=== PATIENT | male | born 1990 | race Caucasian/White ===

== ENCOUNTER 2020-01-02 07:28 | Day surgery (SDC) | payer OTHER ==
[~2020-01-02] VITALS: Ht 180.3 cm; Wt 74.0 kg
[2020-01-02 07:41] VITALS: BP 111/65; PULSE 48; TEMP 97.7
[2020-01-02 08:55] VITALS: BP 108/64; PULSE 68; TEMP 97.3
--- NOTE | 2020-01-02 08:55 | NUR ---
Patient arrives to [facility] post-procedure. He tolerated the procedure well. He ambulates from his cart to the chair in his room with standby assist. He is drowsy, but awake and oriented. Monitoring is applied -VSS on room air. He denies any pain or nausea. Gag reflex is intact. Call light in reach. Offered and receives water and pudding to eat. Attempted to call his and she did not answer. Patient states he will text her and update her.
[2020-01-02 09:10] VITALS: BP 109/82; PULSE 57
--- NOTE | 2020-01-02 09:10 | NUR ---
Patient is awake, resting comfortably in room. VSS on room air. Denies pain, nausea, or need. Tolerating PO well.
--- NOTE | 2020-01-02 09:11 | NUR ---
Dr. Alvares is at the bedside at this time.
[2020-01-02 09:25] VITALS: BP 106/68; PULSE 55
--- NOTE | 2020-01-02 09:25 | NUR ---
Patient is resting comfortably in room. Alert and oriented. VSS on room air.
--- NOTE | 2020-01-02 09:32 | NUR ---
Patient has met discharge criteria. Discharge instructions are discussed. He denies any questions and verbalizes understanding. PIV is removed with catheter intact and hemostasis achieved. He changes to his clothing independently. He is escorted to the exit via wheelchair by staff. He is discharge to home with ride in private vehicle at [id number].
== END 2020-01-02 09:32 | disposition home or self-care (01) ==
LOC: SDCO 07:28
DX: R10.31 Right lower quadrant pain (principal); R14.0 Abdominal distension (gaseous); R11.2 Nausea with vomiting, unspecified; K59.00 Constipation, unspecified; K63.4 Enteroptosis; K63.9 Disease of intestine, unspecified; R63.4 Abnormal weight loss
CPT/HCPCS: J2250; J3010; J7030